=== PATIENT | male | born 1955 | race Caucasian/White ===

== ENCOUNTER 2023-12-26 17:45 | Emergency (ER) | payer OTHER, SELFPAY ==
[2023-12-26 17:55] VITALS: BP 153/51; PULSE 77; RESP 18; TEMP 36.8; O2SAT 98
--- NOTE | 2023-12-26 18:03 | ED.SKABFB ---
HPI - Skin/Abscess/Foreign Bdy General Chief complaint: Skin/Abscess/Foreign Body Stated complaint: Rash/Right Ankle Time Seen by Provider: 12/26/23 18:03 Source: patient Mode of arrival: ambulatory Limitations: no limitations History of Present Illness HPI narrative: 68-year-old male presents with complaint of erythema, warmth and tenderness to right lower extremity. Concern for infection. Patient reports that he has an eczema like rash to left arm and right lower leg for the past 10 years. Has seen a turf grower in the past for this rash. Applies triamcinolone cream 2 to 3 times a day when rashes flaring. He states usually only flaring during the summer months. Is currently having a flare of his eczema rash. Has been itching. 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 All systems reviewed and negative except as noted above. Related Data Home Medications Medication Instructions Recorded Confirmed cyclobenzaprine 5 mg tablet 5 mg PO TID PRN Muscle Spasm 12/26/23 12/26/23 fluoxetine 20 mg capsule 20 mg PO DAILY 12/26/23 12/26/23 lisinopril 20 mg tablet 20 mg PO DAILY 12/26/23 12/26/23 sildenafil 50 mg tablet 50 mg PO DAILY PRN Erectile 12/26/23 12/26/23 Dysfunction simvastatin 40 mg tablet 40 mg PO DAILY 12/26/23 12/26/23 triamcinolone acetonide 0.1 % 1 applic topical BID 12/26/23 12/26/23 topical cream Allergies Allergy/AdvReac Type Severity Reaction Status Date / Time No Known Allergies Allergy Verified 12/26/23 18:03 Review of Systems Review of Systems: CONSTITUTIONAL: Denies fever, chills, or sweats. EYES: Denies visual changes, redness, or discharge. ENT: Denies rhinorrhea, congestion, sore throat, or otalgia. CARDIOVASCULAR: Denies chest pain, palpitations, or edema. RESPIRATORY: Denies cough or dyspnea. GASTROINTESTINAL: Denies abdominal pain, nausea, vomiting, or diarrhea. GENITOURINARY: Denies dysuria or hematuria. SKIN: Reports redness, warmth, tenderness to right lower extremity. Reports eczema rash. MUSCULOSKELETAL: Denies back pain, joint pain, or myalgia. NEUROLOGIC: Denies headache, numbness, or weakness. PSYCHIATRIC: Denies anxiety or depression. All other systems reviewed are negative, except as documented in HPI. PMFSH Comments At time of signature, agree with nursing past medical, surgical, social and family history. There is no relevant family history pertinent to the presenting complaint. Exam Narrative: GENERAL: This is a well-nourished, well-developed patient, in no apparent distress. HEAD: normocephalic, atraumatic. EYES: PERRL. Sclera clear/white. Vision is grossly intact. EARS: External ears normal NOSE: External nose normal NECK: Neck supple, non-tender without lymphadenopathy, masses or thyromegaly. CARDIOVASCULAR: Regular rate and rhythm without murmurs, gallops, or rubs. RESPIRATORY: Clear to auscultation. Breath sounds equal bilaterally. No wheezes, rales, or rhonchi. SKIN: warm, Dry, intact, good texture and turgor. Erythematous, scaly irregular shaped eczema like rash to left forearm and right lower extremity. There is erythema, swelling, tenderness, warmth to right lower extremity concerning for cellulitis NEURO: awake, alert, and oriented to person, place and time. There were no obvious focal neurologic abnormalities. EXTREMITIES: No joint tenderness, effusion, or edema noted. Course Course Level of Care: Express Care Visit Vital Signs Vital signs: Vital Signs Temperature 36.8 C 12/26/23 17:55 Pulse Rate 77 12/26/23 17:55 Respiratory Rate 18 12/26/23 17:55 Blood Pressure 153/51 H 12/26/23 17:55 Pulse Oximetry 98 12/26/23 17:55 Oxygen Delivery Room Air 12/26/23 17:55 Temperature 36.8 C 12/26/23 17:55 Pulse Rate 77 12/26/23 17:55 Respiratory Rate 18 12/26/23 17:55 Blood Pressure 153/51 H 12/26/23 17:55 Pulse Oximetry 98 07
== END 2023-12-26 18:16 | disposition home or self-care (01) ==
PROVIDERS: Emergency Provider Nurse Practitioner Family
DX: L03.115 Cellulitis of right lower limb (principal); E78.00 Pure hypercholesterolemia, unspecified; I10 Essential (primary) hypertension; F41.9 Anxiety disorder, unspecified; F32.A Depression, unspecified
CPT/HCPCS: 99213; G0463

== ENCOUNTER 2024-02-17 12:55 | Emergency (ER) | payer OTHER, SELFPAY ==
[2024-02-17 13:06] VITALS: BP 182/65; PULSE 62; RESP 20; TEMP 36.8; O2SAT 100
--- NOTE | 2024-02-17 13:19 | ED.GENADULT ---
HPI - General Adult General Chief complaint: Urogenital-Male Stated complaint: Poss UTI Time Seen by Provider: 02/17/24 13:19 Source: patient, RN notes reviewed and old records reviewed Mode of arrival: ambulatory Limitations: no limitations History of Present Illness HPI narrative: 69-year-old male presents to the [facility] with concerns for a UTI. Patient reports lower abdominal discomfort, none today. Reports that when he urinates at the end of the stream he has irritation. No burning with urination, no CVA tenderness. Onset (ago): day(s) (3-4) Related Data Home Medications Medication Instructions Recorded Confirmed cyclobenzaprine 5 mg tablet 5 mg PO TID PRN Muscle Spasm 12/26/23 02/17/24 fluoxetine 20 mg capsule 20 mg PO DAILY 12/26/23 02/17/24 lisinopril 20 mg tablet 20 mg PO DAILY 12/26/23 02/17/24 sildenafil 50 mg tablet 50 mg PO DAILY PRN Erectile 12/26/23 02/17/24 Dysfunction simvastatin 40 mg tablet 40 mg PO DAILY 12/26/23 02/17/24 Allergies Allergy/AdvReac Type Severity Reaction Status Date / Time No Known Allergies Allergy Verified 02/17/24 13:22 Review of Systems Review of Systems: All systems reviewed & are unremarkable except as noted in HPI and below Constitutional: Constitutional: Reports no additional constitutional complaints Eyes: Eyes: Reports no additional eye complaints ENT: Reports system reviewed and no additional complaints, except as documented Cardiovascular: Cardiovascular: Reports no additional cardiovascular complaints, Denies chest pain and Denies dyspnea Respiratory: Respiratory: Reports no additional respiratory complaints, Denies chest congestion, Denies cough and Denies dyspnea Gastrointestinal: Gastrointestinal: Reports no additional gastrointestinal complaints, Denies abdominal pain, Denies nausea and Denies vomiting Genitourinary: Genitourinary: Reports as per HPI Musculoskeletal: Musculoskeletal: Reports no additional musculoskeletal complaints Integumentary/Breasts: Skin/Breast: Reports system reviewed and no additional complaints, except as docu Neurologic: Reports system reviewed and no additional complaints, except as documented Psychiatric: Psychiatric: Reports no additional psychiatric complaints Allergic/Immunologic: Allergic/Immunologic: Reports no additional allergic/immunologic complaints PMFSH Comments At the time of my signature, I reviewed and agree with the nursing past medical, surgical, social, and family history. There is no relevant family history pertinent to the patient complaint. Exam Const: General: cooperative, healthy appearing, comfortable, no acute distress, well developed, alert and well nourished Nutritional Appearance: well nourished Orientation/consciousness: patient oriented x3 Limitations: no limitations HENMT: Head: normal to inspection Ears: hearing grossly normal bilaterally and external ears normal Face/Nose/Sinus: Normal external nose present, Normal nares present, Normal nasal mucous membranes and turbinates present, normal facial exam and face symmetric Face and sinus: normal facial exam and face symmetric Eyes: General: appearance normal, both eyes and all related structures Alignment and Position: alignment normal Periorbital: periorbital findings normal Neck: Neck: normal visual inspection, full ROM, no lymphadenopathy and no meningeal signs Chest: Chest palpation & inspection: normal inspection of the chest Resp: Effort & Inspection: normal respiratory effort and able to speak in complete sentences Auscultation: clear to auscultation bilaterally, no crackles, no rales, no rhonchi and no wheezes Cardio: Rate: regular rate Rhythm: regular rhythm GI: GI Palp: No abdominal tenderness : General: Yes no CVA tenderness Skin: General skin exam: normal color and no rashes or lesions noted Lesions: no lesions Rashes: no rashes Trauma: no lacerations or abrasions Wounds: no wounds Neuro: General: patient
[2024-02-17 13:44] LABS: EDUAAPPEAR Clear; EDUABILI Negative; EDUABLOOD 1+; EDUACOLOR1 Light/Pale; EDUAGLUCOSE Negative; EDUAKETONE Negative; EDUALEUKO Negative; EDUANITRATE Negative; EDUAPROTEIN Trace; EDUASPGRAVITY 1.015; EDUAUROBILI 0.2
== END 2024-02-17 13:40 | disposition home or self-care (01) ==
PROVIDERS: Emergency Provider Nurse Practitioner
DX: R30.0 Dysuria (principal); E78.00 Pure hypercholesterolemia, unspecified; I10 Essential (primary) hypertension; F41.9 Anxiety disorder, unspecified; F32.A Depression, unspecified
CPT/HCPCS: 81003; 87086; 99213; G0463